=== PATIENT | female | born 1970 | race Caucasian/White ===

== ENCOUNTER 2023-12-05 07:54 | Emergency (ER) | payer BC, SELFPAY ==
[2023-12-05 08:07] VITALS: BP 162/93
[2023-12-05 08:53] VITALS: BP 150/79
--- NOTE | 2023-12-05 09:00 | ED.GENMED ---
History of Present Illness
General
Chief Complaint: Musculo-Skeletal Complaint
Source: patient
Exam Limitations: none
Time Seen by Provider: 12/05/23 08:53
Nursing documentation reviewed up to this point in time: agreed with
Travel History
Have you had any contact with someone who has COVID-19?: No
Do you have any symptoms of coronavirus? Fever > 100 degrees, chills, cough, shortness of breath, sore throat, loss of taste or smell, muscle aches, or headache?: No
History of Present Illness
History of Present Illness:
53-year-old female with a history of hypertension, [id number] presents with a left elbow pain after a mechanical slip and fall on ice while she was cleaning off her car this morning at 6 AM. Patient says she landed on her left arm. She
did not strike her head and has no headache, neck pain, chest pain, back pain, pelvic pain. Her pain is in her elbow, 3 out of 10 without movement but with movement increases to 8 out of 10. There is no swelling, deformity, numbness tingling or
weakness. She has no wounds. She did not take anything today for pain or ice it.
Past History
Past History
ED Past Medical History: HTN
Social History
Tobacco: Non-smoker
Alcohol: None
Drug: None
Personal: Single
Living: with family
Employment: Employed
Review of Systems
Review of Systems
Allergies reviewed?: Yes
All Other Systems: Not applicable
Phy Exam
Physical Exam
Physical Exam:
GENERAL: Alert , in no apparent distress
HEAD: NCAT
NECK: no midline tenderness, active ROM intact, no paraspinal muscle tenderness;
CARDIAC: Regular rate and rhythm, no edema
LUNGS: Clear breath sounds bilaterally, no acute respiratory distress, no wheezes/rales/rhonchi
BACK: nontender, no signs of trauma, full rom
NEUROLOGICAL: Alert and oriented, no focal neuro deficits, CN intact, 5/5 strength, sensation intact
SKIN: Warm and dry, no bruising, no wounds
MUSCULOSKELETAL: Normal inspection of the left upper extremity, she has no tenderness to palpation of the shoulder, humerus, forearm, wrist or hand. There is normal strength and sensation. She has pain in her AC region, no bony tenderness along
the medial and lateral epicondyle or olecranon but she does have pain with increased flexion past 90 degrees and pronation of the left arm
PSYCH: Normal and appropriate interaction.
Course
Orders/Labs/Results
Orders:
Orders
12/05/23 08:12
CR Elbow - Left Min 3 Views Urgent
Comment:
Reason For Exam: pain, injury, decreased ROM
12/05/23 08:59
Ibuprofen [Motrin] 600 mg PO NOW STA
Vital Signs
Initial and Last Documented VS:
Initial Vital Signs
Temp Pulse Resp BP Pulse Ox
98.9 F 72 16 162/93 98
12/05/23 08:07 12/05/23 08:07 12/05/23 08:07 12/05/23 08:07 12/05/23 08:07
Last Documented Vital Signs
Temp Pulse Resp BP Pulse Ox
98.9 F 77 16 158/78 97
12/05/23 08:07 12/05/23 10:21 12/05/23 10:21 12/05/23 10:21 12/05/23 10:21
MDM/Problems Addressed
Differential Diagnosis Includes:
Elbow fracture, sprain, contusion
MDM/Problems Addressed:
53-year-old female [id number] presents with left elbow pain after mechanical fall onto left arm today
has AC region pain
worse with flexion and pronation
no numbness/tingling/weakness
no proximal or distla pain
no neck pain or headache
on exam pt has no tenderness
she has some pain with exaggerated flrxion of the elbow and pronation
xray indep reviewed by me and pt has a corticated fragmetn that appears old
radiologist agrees, we spoke on the phone
pt doesn't recall old injury but will sling for comfort and if continues to have pain, then can f/u with ortho
suspect this is contusion
*Critical Care Note
Total Time (30-74mins, 75-104mins- exclusive of procedures): Not Applicable
ED Attending Note
-
Portions of this chart may have been created with voice recognition software.� Occasional wrong word or��sound alike� substitutions may have occurred due to the inherent limitations of voice recognition software.
Discharge Plan
Departure
Patient Disposition: Home (Routine Discharge)
Date of Disposition: 12/05/23
Time of Disposition: 09:54
Patient with high blood pressure during this ER visit?: Yes
Condition: Fair
Covid-19: Not Applicable
Discharge Problem:
Contusion of elbow, left
Instructions: Contusion (DC), How to Use a Shoulder Sling
Referrals:
Zaire Swan MD [Active] - Follow up in 2-3 days
UNKNOWN - PT DOES,NOT KNOW [Family Provider] -
Stand Alone Forms: Return to Work
Activity Restrictions/Additional Instructions:
YOUR XRAY SHOWS A TINY FRAGMENT THAT LOOKS LIKE AN OLD INJURY AND NOT A NEW FRACTURE
YOU LIKELY BRUISED YOUR ELBOW
ICE OFF AND ON
MOTRIN OR ADVIL 2-3 TIMES A DAY WITH FOOD
WEAR THE SLING WHILE AWAKE, TAKE IT OFF AT NIGHT
AFTER A FEW DAYS TRY WITHOUT THE SLING AND IF YOU FEEL BETTER, THEN NO FOLLOW UP IS NEEDED
IF YOU ARE STILL HAVING PAIN, CALL ORTHOPEDICS FOR AN APPOINTMENT
RETURN FOR ANY COCNERNS.
Interventions
Interventions:
*Risk Screen - Suicide Last Done: 12/05/23 08:54
*General Assessment Last Done: 12/05/23 08:53
*Neglect/Abuse Screening Last Done: 12/05/23 08:54
ED- Fall Risk Assessment Last Done: 12/05/23 10:21
*ED COVID-19 Vaccine History Last Done: 12/05/23 08:53
*Nursing Disposition Last Done: 12/05/23 10:21
ED-Musculoskeletal Assessment Last Done: 12/05/23 08:54
Discharge Date and Time
Discharge Date/Time: 12/05/23 10:21
[2023-12-05 09:06] VITALS: BP 166/84
[2023-12-05] MEDS: MOTRIN 600 MG PO (09:17)
[2023-12-05 10:21] VITALS: BP 158/78
== END 2023-12-05 10:21 | disposition home or self-care (01) ==
LOC: EMR 07:54
PROVIDERS: EMERGENCY PHYSICIAN Emergency Medicine
DX: S50.02XA Contusion of left elbow, initial encounter (principal); W00.0XXA Fall on same level due to ice and snow, initial encounter; I10 Essential (primary) hypertension; M19.90 Unspecified osteoarthritis, unspecified site; Z96.653 Presence of artificial knee joint, bilateral; Z85.3 Personal history of malignant neoplasm of breast; Z90.11 Acquired absence of right breast and nipple; Z88.1 Allergy status to other antibiotic agents
CPT/HCPCS: 99284; 73080

== ENCOUNTER → 2024-02-08 07:34 | Outpatient (REF) | payer BC, SELFPAY | LOC: EMG 07:34 | PROVIDERS: ATTENDING PHYSICIAN Psychiatry & Neurology Neurology | DX: G62.9 Polyneuropathy, unspecified (principal); R20.0 Anesthesia of skin | CPT/HCPCS: 95886; 95911 ==